=== PATIENT | female | born 1975 | race Caucasian/White ===

== ENCOUNTER 2016-10-19 11:08 | Emergency (ER) | payer MEDICAID ==
[2016-10-19] MEDS ORDERED: IBUPROFEN 800 MG TABLET PO ONE (11:32)
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
--- NOTE | 2016-10-19 12:09 | RADIOLOGY REPORT (SQ) ---
EXAM DESCRIPTION: FOOT RIGHT COMPLETE COMPLETED DATE/TIME: 10/19/2016 11:58 am REASON FOR STUDY: fall, r 5th MT pain COMPARISON: None. NUMBER OF VIEWS: Three views. TECHNIQUE: AP, lateral and oblique radiographic images acquired of the right foot. LIMITATIONS: None. FINDINGS: MINERALIZATION: Normal. BONES: No acute fracture or dislocation. Plantar and dorsal calcaneal spurs are present. JOINTS: No effusions. SOFT TISSUES: No soft tissue swelling. No foreign body. OTHER: No other significant finding. IMPRESSION: Calcaneal spurs with no acute abnormality. TECHNICAL DOCUMENTATION: JOB ID: [id number] [employer]- All Rights Reserved
--- NOTE | 2016-10-19 12:10 | RADIOLOGY REPORT (SQ) ---
EXAM DESCRIPTION: ANKLE RIGHT COMPLETE COMPLETED DATE/TIME: 10/19/2016 11:58 am REASON FOR STUDY: fall, r lateral ankle pain COMPARISON: None. NUMBER OF VIEWS: Three views. TECHNIQUE: AP, lateral, and oblique radiographic images acquired of the right ankle. LIMITATIONS: None. FINDINGS: MINERALIZATION: Normal. BONES: No acute fracture or dislocation. Calcaneal spurs are present. JOINTS: No effusions. SOFT TISSUES: No soft tissue swelling. No foreign body. OTHER: No other significant finding. IMPRESSION: NEGATIVE STUDY OF THE RIGHT ANKLE. NO RADIOGRAPHIC EVIDENCE OF ACUTE INJURY. TECHNICAL DOCUMENTATION: JOB ID: [id number] [employer]- All Rights Reserved
[2016-10-19 12:53] VITALS: BP 128/84
== END 2016-10-19 12:41 | disposition home or self-care (01) ==
LOC: ER 11:08
DX: S93.601A Unspecified sprain of right foot, initial encounter (principal); S93.401A Sprain of unspecified ligament of right ankle, initial encounter; W01.0XXA Fall on same level from slipping, tripping and stumbling without subsequent striking against object, initial encounter; Y92.009 Unspecified place in unspecified non-institutional (private) residence as the place of occurrence of the external cause; F17.200 Nicotine dependence, unspecified, uncomplicated; Z85.41 Personal history of malignant neoplasm of cervix uteri
CPT/HCPCS: 99283; 73610; 73630; L4350; J3490

== ENCOUNTER 2017-06-20 10:44 | Emergency (ER) | payer MEDICAID ==
[2017-06-20] MEDS ORDERED: LORAZEPAM INJ 2 MG/1 ML VIAL IV ONE (10:55)
[2017-06-20] MEDS ORDERED: ACETAMINOPHEN 325 MG TABLET PO ONE (10:55)
--- NOTE | 2017-06-20 10:55 | ER Document Report ---
ED General - General Stated Complaint: POSSIBLE SEIZURES Time Seen by Provider: 06/20/17 10:54 Notes: Patient with history of seizure disorders. Followed by Dr. Almendarez locally. Has been on phenobarbital as well as gabapentin in the past. Patient has not been on the phenobarbital for quite some time because she has not needed it. Has been taking gabapentin 1200 mg twice a day. Had a seizure yesterday and had another one today. No other major issues. called 911 because she was quite postictal. Patient is a and O 4 at this time. Denies any major symptoms other than a mild headache. TRAVEL OUTSIDE OF THE [place] IN LAST 30 DAYS: No - HPI Onset: Just prior to arrival Severity: Mild Pain Level: 1 Associated symptoms: None - Related Data Allergies/Adverse Reactions: iodine [Iodine] Allergy (Mild, Verified 03/28/15 19:33) amoxicillin [Amoxicillin] Allergy (Verified 03/28/15 19:33) Penicillins Allergy (Verified 03/28/15 19:33) Past Medical History - General Information source: Patient - Social History Smoking Status: Former Smoker Frequency of alcohol use: None Drug Abuse: None Lives with: Spouse/Significant other Family History: Reviewed & Not Pertinent, Hypertension Neurological Medical History: Reports: Hx Seizures Renal/ Medical History: Denies: Hx Peritoneal Dialysis Malignancy Medical History: Reports: Hx Cervical Cancer Musculoskeltal Medical History: Reports Hx Musculoskeletal Deformity, Reports Hx Musculoskeletal Trauma Psychiatric Medical History: Reports: Hx Anxiety, Hx Depression Past Surgical History: Reports: Hx Section, Hx Dilation and Curettage, Hx Gynecologic Surgery, Hx Tubal Ligation - Immunizations Immunizations up to date: Yes Hx Diphtheria, Pertussis, Tetanus Vaccination: Yes Review of Systems - Review of Systems Constitutional: No symptoms reported EENT: No symptoms reported Cardiovascular: No symptoms reported Respiratory: No symptoms reported Gastrointestinal: No symptoms reported Genitourinary: No symptoms reported Female Genitourinary: No symptoms reported Musculoskeletal: No symptoms reported Skin: No symptoms reported Hematologic/Lymphatic: No symptoms reported Neurological/Psychological: Seizure, Headaches Physical Exam - Vital signs Vitals: Temp Resp Pulse Ox 98.2 F 15 99 06/20/17 10:50 06/20/17 10:50 06/20/17 10:50 Interpretation: Normal - General General appearance: Appears well, Alert - HEENT Head: Normocephalic, Atraumatic Eyes: Normal Pupils: PERRL - Respiratory Respiratory status: No respiratory distress Chest status: Nontender Breath sounds: Normal Chest palpation: Normal - Cardiovascular Rhythm: Regular Heart sounds: Normal auscultation Murmur: No - Abdominal Inspection: Normal Distension: No distension Bowel sounds: Normal Tenderness: Nontender Organomegaly: No organomegaly - Back Back: Normal, Nontender - Extremities General upper extremity: Normal inspection, Nontender, Normal color, Normal ROM , Normal temperature General lower extremity: Normal inspection, Nontender, Normal color, Normal ROM , Normal temperature, Normal weight bearing. No: Krystle's sign - Neurological Neuro grossly intact: Yes Cognition: Normal Orientation: AAOx4 [place] Coma Scale Eye Opening: Spontaneous [place] Coma Scale Verbal: Oriented Mac Coma Scale Motor: Obeys Commands Mac Coma Scale Total: 15 Speech: Normal Motor strength normal: LUE, RUE, LLE, RLE Sensory: Normal - Psychological Associated symptoms: Normal affect, Normal mood - Skin Skin Temperature: Warm Skin Moisture: Dry Skin Color: Normal Course - Re-evaluation Re-evalutation: 06/20/17 12:12 Patient does report that she stopped taking her Zoloft about 5 days ago. This could definitely be causes exacerbation of her symptoms. We will give her a dose of it right now. - Vital Signs Vital signs: Temp Pulse Resp BP Pulse Ox 98.2 F 16 140/91 H 100 06/20/17 10:50 06/20/17 11:01 06/20/17 11:00 06/20/17 11:01 - Laboratory Result Diagrams: 06/20/17 10:55 06/20/17 10:55 Laboratory results interpreted by me: 06/20/17 06/20/17 10:55 10:55 Eosinophils % 6.1 H Carbon Dioxide 31 H Total Bilirubin 0.1 L Discharge - Discharge Clinical Impression: Seizure, Selective serotonin reuptake inhibitor (SSRI) discontinuation syndrome Condition: Good Disposition: HOME, SELF-CARE Instructions: Seizure, Known Epileptic ([facility]) Additional Instructions: Please begin your medications as prescribed. Follow-up with your regular doctor. Please get plenty of rest today. Stay out of the heat. Cannot do anything strenuous. You will need repeat labs done in a few weeks. It will be very important that you make an appointment to follow-up with your doctor as liver function testing as well as phenobarbital level should be performed in approximately 2-4 weeks. Prescriptions: Gabapentin 600 mg PO BID 15 Days #60 capsule Phenobarbital [Phenobarbital 32.4 Mg Tablet] 32.4 mg PO TID 20 Days #60 tablet Referrals: EDIS GAMBINO MD [Primary Care Provider] - Follow up in 3-5 days
[2017-06-20 11:19] LABS: ABSOLUTE EOSINOPHILS # (AUTO) 0.5 10^3/uL (0.0-0.6); ABSOLUTE LYMPHOCYTES (AUTO) 2.4 10^3/uL (0.5-4.7); ABSOLUTE MONOCYTES (AUTO) 0.5 10^3/uL (0.1-1.4); ABSOLUTE NEUT (AUTO) 4.8 10^3/uL (1.7-8.2); BASOPHILS % (AUTO) 0.6 % (0-2); EOSINOPHILS % (AUTO) 6.1 % (0-6); HEMATOCRIT 38.4 % (36.0-47.0); HEMOGLOBIN 13.1 g/dL (12.0-15.5); LYMPHOCYTES % (AUTO) 29.3 % (13-45); MEAN CORPUSCULAR HEMOGLOBIN 30.4 pg (27.0-33.4); MEAN CORPUSCULAR HGB CONC 34.1 g/dL (32.0-36.0); MEAN CORPUSCULAR VOLUME 89 fl (80-97); MONOCYTES % (AUTO) 6.5 % (3-13); PLATELET COUNT 266 10^3/uL (150-450); RED CELL DISTRIBUTION WIDTH 13.7 % (11.5-14.0); SEGMENTED NEUTROPHILS % (AUTO) 57.5 % (42-78); TOTAL CELLS COUNTED % (AUTO) 100 %; WHITE BLOOD COUNT 8.3 10^3/uL (4.0-10.5)
[2017-06-20] MEDS ORDERED: PHENOBARBITAL 20 MG/5 ML UDCUP PO ONE (11:19)
[2017-06-20 11:55] LABS: ALANINE AMINOTRANSFERASE 30 U/L (9-52); ALKALINE PHOSPHATASE 75 U/L (38-126); ANION GAP 12 (5-19); ASPARTATE AMINO TRANSFERASE 25 U/L (14-36); BILIRUBIN,DIRECT 0.1 mg/dL (0.0-0.4); BILIRUBIN,TOTAL 0.1 mg/dL (0.2-1.3); BLOOD UREA NITROGEN 11 mg/dL (7-20); CALCIUM 9.5 mg/dL (8.4-10.2); CARBON DIOXIDE 31 mmol/L (22-30); CHLORIDE 101 mmol/L (98-107); GLUCOSE 102 mg/dL (75-110); POTASSIUM 4.6 mmol/L (3.6-5.0); TOTAL PROTEIN 6.8 g/dL (6.3-8.2)
[2017-06-20] MEDS ORDERED: SERTRALINE HCL 50 MG TABLET PO ONE (12:11)
[2017-06-20 13:12] LABS: APPEARANCE,URINE CLEAR; BILIRUBIN,URINE NEGATIVE (NEGATIVE); COLOR,URINE YELLOW; GLUCOSE, URINE NEGATIVE (NEGATIVE); KETONES,URINE NEGATIVE (NEGATIVE); LEUKOCYTE ESTERASE,URINE NEGATIVE (NEGATIVE); NITRITE,URINE NEGATIVE (NEGATIVE); PROTEIN,URINE NEGATIVE (NEGATIVE); URINE SPECIFIC GRAVITY 1.015; UROBILINOGEN,URINE NEGATIVE mg/dL (<2.0)
[2017-06-20 13:38] LABS: URINE AMPHETAMINES SCREEN UNCONFIRMED POSITIVE; URINE BARBITURATES SCREEN NEGATIVE; URINE BENZODIAZEPINES SCREEN NEGATIVE; URINE COCAINE SCREEN NEGATIVE; URINE MARIJUANA (THC) SCREEN NEGATIVE; URINE METHADONE SCREEN NEGATIVE; URINE PHENCYCLIDINE SCREEN NEGATIVE
[2017-06-20 14:13] VITALS: BP 105/67
== END 2017-06-20 14:11 | disposition home or self-care (01) ==
LOC: ER 10:44
DX: G40.909 Epilepsy, unspecified, not intractable, without status epilepticus (principal); T42.6X5A Adverse effect of other antiepileptic and sedative-hypnotic drugs, initial encounter; X58.XXXA Exposure to other specified factors, initial encounter; Z88.0 Allergy status to penicillin; Z87.891 Personal history of nicotine dependence; Z98.51 Tubal ligation status
CPT/HCPCS: 99284; 96374; 36415; 85025; 81025; 80053; 81001; 80307; J3490 ×3; J2060

== ENCOUNTER → 2017-07-11 | Outpatient (CLI) | payer MEDICAID ==
[2017-07-11 14:13] LABS: ABSOLUTE BASOPHILS # (AUTO) 0.1 10^3/uL (0.0-0.2); ABSOLUTE EOSINOPHILS # (AUTO) 0.5 10^3/uL (0.0-0.6); ABSOLUTE LYMPHOCYTES (AUTO) 2.2 10^3/uL (0.5-4.7); ABSOLUTE MONOCYTES (AUTO) 0.5 10^3/uL (0.1-1.4); ABSOLUTE NEUT (AUTO) 6.6 10^3/uL (1.7-8.2); BASOPHILS % (AUTO) 0.6 % (0-2); EOSINOPHILS % (AUTO) 5.2 % (0-6); HEMATOCRIT 38.1 % (36.0-47.0); HEMOGLOBIN 12.9 g/dL (12.0-15.5); LYMPHOCYTES % (AUTO) 22.5 % (13-45); MEAN CORPUSCULAR HEMOGLOBIN 29.9 pg (27.0-33.4); MEAN CORPUSCULAR HGB CONC 33.8 g/dL (32.0-36.0); MEAN CORPUSCULAR VOLUME 88 fl (80-97); MONOCYTES % (AUTO) 4.7 % (3-13); PLATELET COUNT 293 10^3/uL (150-450); RED BLOOD COUNT 4.31 10^6/uL (3.72-5.28); RED CELL DISTRIBUTION WIDTH 13.3 % (11.5-14.0); TOTAL CELLS COUNTED % (AUTO) 100 %; WHITE BLOOD COUNT 9.8 10^3/uL (4.0-10.5)
[2017-07-11 14:36] LABS: ALANINE AMINOTRANSFERASE 21 U/L (9-52); ALBUMIN 4.4 g/dL (3.5-5.0); ALKALINE PHOSPHATASE 95 U/L (38-126); ANION GAP 15 (5-19); ASPARTATE AMINO TRANSFERASE 25 U/L (14-36); BILIRUBIN,DIRECT 0.3 mg/dL (0.0-0.4); BILIRUBIN,TOTAL 0.3 mg/dL (0.2-1.3); BLOOD UREA NITROGEN 10 mg/dL (7-20); CALCIUM 9.6 mg/dL (8.4-10.2); CARBON DIOXIDE 24 mmol/L (22-30); CHLORIDE 102 mmol/L (98-107); CHOLESTEROL 220.52 mg/dL (0-200); GLUCOSE 89 mg/dL (75-110); POTASSIUM 4.6 mmol/L (3.6-5.0); SODIUM 141.2 mmol/L (137-145); TOTAL PROTEIN 7.6 g/dL (6.3-8.2); TRIGLYCERIDES 50 mg/dL (<150)
[2017-07-11 14:47] LABS: DIRECT LDL 119 mg/dL (<100)
== END ==
LOC: OD 13:21
PROVIDERS: ATTEND Internal Medicine Geriatric Medicine
DX: E66.01 Morbid (severe) obesity due to excess calories (principal); Z68.42 Body mass index [BMI] 45.0-49.9, adult; E78.5 Hyperlipidemia, unspecified
CPT/HCPCS: 36415; 80053; 80061; 84443; 85025

== ENCOUNTER 2017-09-03 21:05 | Emergency (ER) | payer OTHER, MEDICAID ==
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
--- NOTE | 2017-09-03 23:33 | RADIOLOGY REPORT (SQ) ---
Right ankle three view on 09/03/2017 at 11:32 PM CLINICAL INDICATION: Right ankle pain COMPARISON: 10/19/2016 FINDINGS: Plantar calcaneal spur is again noted. The ankle mortise is intact. Mild soft tissue swelling is noted around the ankle. There are no fractures. Visualized joints are well aligned. IMPRESSION: No acute bony abnormality.
--- NOTE | 2017-09-03 23:35 | RADIOLOGY REPORT (SQ) ---
Left tibia-fibula two view on 09/03/2017 at 11:34 PM CLINICAL INDICATION: Leg pain COMPARISON: None FINDINGS: No joint effusion is noted in the knee. Small plantar calcaneal spur is noted. Mild changes of osteoarthritis are noted in the medial compartment of the knee. There are no fractures. Visualized joints are well aligned. IMPRESSION: No acute abnormality.
--- NOTE | 2017-09-03 23:36 | RADIOLOGY REPORT (SQ) ---
Right tibia-fibula two view on 09/03/2017 at 11:30 PM CLINICAL INDICATION: Leg pain COMPARISON: None FINDINGS: There are no fractures. Visualized joints are well aligned. No bony abnormality is noted. IMPRESSION: No acute bony abnormality.
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
--- NOTE | 2017-09-03 23:38 | RADIOLOGY REPORT (SQ) ---
Pelvis and right hip two view on 09/03/2017 CLINICAL INDICATION: Pain COMPARISON: None FINDINGS: The hips are well located. The SI joints are well aligned. Cortical irregularity along the inferior lateral aspect of the right greater trochanter is favored to be chronic in nature but cannot exclude fracture at this location. If there is high clinical concern consider CT follow-up. No other evidence of fracture is noted. IMPRESSION: Possible age-indeterminate fracture involving the right inferior lateral greater trochanter. If there is clinical concern for fracture at this location consider CT follow-up.
== END 2017-09-04 00:10 | disposition left against medical advice (07) ==
LOC: ER 21:05
DX: M54.2 Cervicalgia (principal); M25.551 Pain in right hip; M25.571 Pain in right ankle and joints of right foot; M79.605 Pain in left leg; G40.909 Epilepsy, unspecified, not intractable, without status epilepticus; Z88.0 Allergy status to penicillin; Z90.710 Acquired absence of both cervix and uterus; Z85.41 Personal history of malignant neoplasm of cervix uteri
CPT/HCPCS: 99284; 73610; 73552; 73502; 73590 ×2; 70450; 72125; L0120

== ENCOUNTER 2018-11-24 17:06 | Emergency (ER) | payer MEDICAID, OTHER ==
[2018-11-24 17:26] LABS: ABSOLUTE BASOPHILS # (AUTO) 0.1 10^3/uL (0.0-0.2); ABSOLUTE EOSINOPHILS # (AUTO) 0.5 10^3/uL (0.0-0.6); ABSOLUTE LYMPHOCYTES (AUTO) 1.9 10^3/uL (0.5-4.7); ABSOLUTE MONOCYTES (AUTO) 0.5 10^3/uL (0.1-1.4); ABSOLUTE NEUT (AUTO) 4.8 10^3/uL (1.7-8.2); BASOPHILS % (AUTO) 0.7 % (0-2); EOSINOPHILS % (AUTO) 6.2 % (0-6); HEMATOCRIT 37.7 % (36.0-47.0); HEMOGLOBIN 12.3 g/dL (12.0-15.5); LYMPHOCYTES % (AUTO) 25.1 % (13-45); MEAN CORPUSCULAR HEMOGLOBIN 29.4 pg (27.0-33.4); MEAN CORPUSCULAR HGB CONC 32.7 g/dL (32.0-36.0); MEAN CORPUSCULAR VOLUME 90 fl (80-97); MONOCYTES % (AUTO) 6.2 % (3-13); PLATELET COUNT 253 10^3/uL (150-450); RED BLOOD COUNT 4.19 10^6/uL (3.72-5.28); RED CELL DISTRIBUTION WIDTH 15.3 % (11.5-14.0); SEGMENTED NEUTROPHILS % (AUTO) 61.8 % (42-78); TOTAL CELLS COUNTED % (AUTO) 100 %; WHITE BLOOD COUNT 7.7 10^3/uL (4.0-10.5)
--- NOTE | 2018-11-24 17:43 | RADIOLOGY REPORT (SQ) ---
EXAM DESCRIPTION: CHEST SINGLE VIEW COMPLETED DATE/TIME: 11/24/2018 5:27 pm REASON FOR STUDY: bed 21 cp COMPARISON: None. EXAM PARAMETERS: NUMBER OF VIEWS: One view. TECHNIQUE: Single frontal radiographic view of the chest acquired. RADIATION DOSE: NA LIMITATIONS: None. FINDINGS: LUNGS AND PLEURA: No opacities, masses or pneumothorax. No pleural effusion. MEDIASTINUM AND HILAR STRUCTURES: No masses. Contour normal. HEART AND VASCULAR STRUCTURES: The heart size is at the upper limits of normal. Normal vasculature. BONES: No acute findings. HARDWARE: None in the chest. OTHER: No other significant finding. IMPRESSION: 1. NO ACUTE RADIOGRAPHIC FINDING IN THE CHEST. TECHNICAL DOCUMENTATION: JOB ID: [id number] [employer]- All Rights Reserved Reading location - IP/workstation name: [email or web address]
[2018-11-24 17:48] LABS: ALBUMIN 3.7 g/dL (3.5-5.0); ALKALINE PHOSPHATASE 81 U/L (38-126); ANION GAP 7 (5-19); ASPARTATE AMINO TRANSFERASE 29 U/L (14-36); BILIRUBIN,DIRECT 0.1 mg/dL (0.0-0.4); BILIRUBIN,TOTAL 0.2 mg/dL (0.2-1.3); BLOOD UREA NITROGEN 8 mg/dL (7-20); CALCIUM 8.7 mg/dL (8.4-10.2); CARBON DIOXIDE 30 mmol/L (22-30); CHLORIDE 103 mmol/L (98-107); CREATINE KINASE 117 U/L (30-135); GLUCOSE 85 mg/dL (75-110); POTASSIUM 4.1 mmol/L (3.6-5.0); TOTAL PROTEIN 6.9 g/dL (6.3-8.2)
[2018-11-24 18:01] LABS: TROPONIN I < 0.012 ng/mL
--- NOTE | 2018-11-24 18:22 | ER Document Report ---
ED General - General Chief Complaint: Chest Pain Stated Complaint: CHEST PAIN Time Seen by Provider: 11/24/18 17:44 Primary Care Provider: EDIS GAMBINO MD [Primary Care Provider] - Follow up as needed TRAVEL OUTSIDE OF THE [place] IN LAST 30 DAYS: Yes - HPI Notes: Patient is a 43-year-old female who presents to the emergency department for evaluation. Evidently she was on the phone, walking around. She remarked to her daughter that she needed to sit, but she felt very dizzy. She sat down, laid her head back, and went unresponsive for approximately 5 minutes. When she awoke she was totally normal. Daughter was present the entire time. She states that she witnessed no seizure activity. 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 She is been taking her medications as prescribed. She notes that her seizures have increased since being changed from Subutex to Suboxone. Patient states that when she woke she had a left-sided chest pain. She really cannot describe it to say other than it hurts. She grabs the pectoral muscle and soft tissue in the left axillary region. She states that the pain goes from under her left breast into her left arm. She states it was there when she woke up, lessened by the time the ambulance came, and is now entirely gone. She denies any associated nausea, diaphoresis. - Related Data Allergies/Adverse Reactions: iodine [Iodine] Allergy (Mild, Verified 03/28/15 19:33) amoxicillin [Amoxicillin] Allergy (Verified 03/28/15 19:33) Penicillins Allergy (Verified 03/28/15 19:33) Home Medications: Vyvanse 60 mg daily, Neurontin 600 mg 4 times daily, trazodone 100 mg at bedtime, Zoloft 100 mg daily, Suboxone 2 mg twice daily, Fycompa 4 mg daily Past Medical History - Social History Smoking Status: Current Every Day Smoker Family History: Reviewed & Not Pertinent, Hypertension Patient has suicidal ideation: No Patient has homicidal ideation: No Neurological Medical History: Reports: Hx Seizures Renal/ Medical History: Denies: Hx Peritoneal Dialysis Malignancy Medical History: Reports: Hx Cervical Cancer Musculoskeletal Medical History: Reports Hx Musculoskeletal Deformity, Reports Hx Musculoskeletal Trauma Psychiatric Medical History: Reports: Hx Anxiety, Hx Depression Past Surgical History: Reports: Hx Section, Hx Dilation and Curettage, Hx Gynecologic Surgery, Hx Hysterectomy, Hx Tubal Ligation - Immunizations Immunizations up to date: Yes Hx Diphtheria, Pertussis, Tetanus Vaccination: Yes Review of Systems - Review of Systems Constitutional: No symptoms reported EENT: No symptoms reported Cardiovascular: See HPI Respiratory: No symptoms reported Gastrointestinal: No symptoms reported Genitourinary: No symptoms reported Female Genitourinary: No symptoms reported Musculoskeletal: No symptoms reported Skin: No symptoms reported Neurological/Psychological: See HPI Physical Exam - Vital signs Vitals: Resp Pulse Ox 23 H 97 11/24/18 17:20 11/24/18 17:20 - Notes Notes: This is an obese 43-year-old female, appears her stated age in no acute distress. Vital signs reviewed, please refer to chart. Head is normocephalic, atraumatic. Pupils equal round, reactive to light. Neck is supple without meningismus. Heart is regular rate and rhythm. Lungs are clear to auscultation bilaterally. No breast mass on the left that I can appreciate. No overlying skin changes. No significant tenderness to palpation to light touch in that area, but she does have tenderness to palpation deep in the pectoralis muscle. Abdomen is soft, nontender, normoactive bowel sounds throughout. Extremities without cyanosis, clubbing. Posterior calves are nontender. Peripheral pulses are equal. Skin is warm and dry. She does have one erythematous pustule noted at the base of the neck, overlying the trapezius on the left. No surrounding induration. Patient is awake, alert, neurological exam is nonfocal. Course - Re-evaluation Re-evalutation: 11/24/18 18:43 Patient presents to the emergency department for evaluation after an unresponsive episode, and for chest pain. She has not had any chest pain since arrival. My suspicion is that this unresponsive episode may have in fact been a seizure. She states her seizures are "stress-induced." This would be an at ypical seizure for her, but she admits she has been under a great amount of stress. She has not stopped or changed any of her antiepileptic medications. The patient has been stable, and again has no chest pain now. Her initial troponin was totally negative. I did discuss staying for a second troponin. The patient is opted not to. I talked to her at length about the fact that I could not rule out acute coronary syndrome or ongoing anginal pain in this setting. She voiced understanding. We talked about the possible sequelae of this, including change in lifestyle and . She voiced understanding and still decided to sign out AGAINST MEDICAL ADVICE. She is to follow-up closely with her primary care provider as well as her neurologist. She is advised that she needs to lose weight, quit smoking. She is to return to the ED with worsening or new concerning symptoms, or if at any point she changes her mind regarding serial troponin testing. - Vital Signs Vital signs: Temp Pulse Resp BP Pulse Ox 16 135/70 H 95 11/24/18 17:23 11/24/18 17:23 11/24/18 17:34 - Laboratory Result Diagrams: 11/24/18 16:41 11/24/18 16:41 Laboratory results interpreted by me: 11/24/18 16:41 RDW 15.3 H Eos % (Auto) 6.2 H - Diagnostic Test Radiology reviewed: Reports reviewed Radiology results interpreted by me: 11/24/18 18:22 Chest X-Ray 11/24/18 17:11 IMPRESSION: 1. NO ACUTE RADIOGRAPHIC FINDING IN THE CHEST. - EKG Interpretation by Me Additional EKG results interpreted by me: 11/24/18 18:22 Sinus mechanism with rate of 61 bpm. Normal axis and intervals, no acute ST changes concerning for ischemia or infarction. Discharge - Discharge Clinical Impression: Unresponsive episode Chest pain Qualifiers: Chest pain type: unspecified Qualified Code(s): R07.9 - Chest pain, unspecified Condition: Stable Disposition: AGAINST MEDICAL ADVICE Instructions: Chest Pain of Unclear Cause ([facility]) Additional Instructions: No clear cause was found for your unresponsive episode or your chest pain today. You have elected to leave AGAINST MEDICAL ADVICE. Should you change your mind, if your symptoms return, or if you develop any new or concerning symptoms, please return immediately to the emergency department for evaluation. Otherwise follow-up with your neurologist and primary care provider this week. Referrals: EDIS GAMBINO MD [Primary Care Provider] - Follow up as needed
[2018-11-24 18:53] VITALS: BP 111/72
--- NOTE | 2018-11-25 17:57 | EKG REPORT ---
SEVERITY:- NORMAL ECG - SINUS RHYTHM : Confirmed by: Michael Mora 25-Nov-2018 17:57:10
== END 2018-11-24 19:04 | disposition left against medical advice (07) ==
LOC: ER 17:06
DX: R07.9 Chest pain, unspecified (principal); R42 Dizziness and giddiness; R40.4 Transient alteration of awareness; F17.210 Nicotine dependence, cigarettes, uncomplicated; Z88.0 Allergy status to penicillin; Z90.710 Acquired absence of both cervix and uterus
CPT/HCPCS: 36415; 71045; 80053; 82550; 82553; 84484; 85025; 93005; 93010; 99285

== ENCOUNTER 2019-01-22 17:58 | Emergency (ER) | payer SELFPAY ==
--- NOTE | 2019-01-22 19:17 | RADIOLOGY REPORT (SQ) ---
EXAM DESCRIPTION: SHOULDER RIGHT 2 OR MORE VIEWS COMPLETED DATE/TIME: 01/22/2019 7:08 pm REASON FOR STUDY: bone tenderness COMPARISON: None. NUMBER OF VIEWS: Three views. TECHNIQUE: Internal rotation, external rotation, and Y view images acquired of the left shoulder. LIMITATIONS: None. FINDINGS: MINERALIZATION: Normal. BONES: No acute fracture. No worrisome bone lesions. JOINTS: No dislocation. VISUALIZED LUNGS AND RIBS: No pneumothorax. No rib fracture. SOFT TISSUES: No radiopaque foreign body. OTHER: No other significant finding. IMPRESSION: NO RADIOGRAPHIC EVIDENCE OF ACUTE INJURY. TECHNICAL DOCUMENTATION: JOB ID: [id number] [employer]- All Rights Reserved Reading location - IP/workstation name: [email or web address]
[2019-01-22] MEDS ORDERED: ASPIRIN 81 MG TABLET, CHEWABLE PO ONE (19:22)
--- NOTE | 2019-01-22 19:24 | ER Document Report ---
ED Medical Screen (RME) - General Chief Complaint: Fall Stated Complaint: CHEST PAIN TRAVEL OUTSIDE OF THE [place] IN LAST 30 DAYS: Yes - HPI Notes: 01/22/19 19:22 43-year-old female presents emergency room after falling on her left shoulder approximately 2 days ago. Patient has a seizure petit and grand mal seizures, states that she has been out of her trazodone and this is why her seizures have increased. Reports left-sided chest pain that does radiate to her shoulder, she is unsure if this is related to the fall or if it is actual chest pain because she does not remember the event. Pain is 4 out of 10, throbbing achy. I have greeted and performed a rapid initial assessment of this patient. A comprehensive ED assessment and evaluation of the patient, analysis of test results and completion of the medical decision making process will be conducted by additional ED providers. PHYSICAL EXAMINATION: GENERAL: Well-appearing, well-nourished and in no acute distress. HEAD: Atraumatic, normocephalic. EYES: Pupils equal round extraocular movements intact, conjunctiva are normal. ENT: Nares patent NECK: Normal range of motion LUNGS: No respiratory distress Musculoskeletal: Normal range of motion with reproducible left-sided chest pain on palpation. Limited range of motion with left shoulder with abduction. [place] +2 in bilateral upper extremities equally NEUROLOGICAL: Normal speech, normal gait. PSYCH: Normal mood, normal affect. SKIN: Warm, Dry, normal turgor, no rashes or lesions noted. - Related Data Allergies/Adverse Reactions: iodine [Iodine] Allergy (Mild, Verified 03/28/15 19:33) amoxicillin [Amoxicillin] Allergy (Verified 03/28/15 19:33) Penicillins Allergy (Verified 03/28/15 19:33) Home Medications: TRazodone Past Medical History - Social History Family history: Reviewed & Not Pertinent Neurological Medical History: Reports: Hx Seizures Renal/ Medical History: Denies: Hx Peritoneal Dialysis Malignancy Medical History: Reports: Hx Cervical Cancer Musculoskeltal Medical History: Reports Hx Musculoskeletal Deformity, Reports Hx Musculoskeletal Trauma Psychiatric Medical History: Reports: Hx Anxiety, Hx Depression Past Surgical History: Reports: Hx Section, Hx Dilation and Curettage, Hx Gynecologic Surgery, Hx Hysterectomy, Hx Tubal Ligation - Immunizations Immunizations up to date: Yes Hx Diphtheria, Pertussis, Tetanus Vaccination: Yes Physical Exam - Vital signs Vitals: Temp Pulse Resp BP Pulse Ox 98.0 F 78 12 107/80 100 01/22/19 17:59 01/22/19 17:59 01/22/19 17:59 01/22/19 17:59 01/22/19 17:59 Course - Vital Signs Vital signs: Temp Pulse Resp BP Pulse Ox 98.0 F 78 22 H 107/80 100 01/22/19 17:59 01/22/19 17:59 01/22/19 18:18 01/22/19 17:59 01/22/19 17:59
--- NOTE | 2019-01-22 20:51 | EKG REPORT ---
SEVERITY:- NORMAL ECG - SINUS RHYTHM : Confirmed by: Tunde Hernandez MD 22-Jan-2019 20:51:19
[2019-01-22 20:56] LABS: APPEARANCE,URINE SLIGHTLY-CLOUDY; BILIRUBIN,URINE NEGATIVE (NEGATIVE); COLOR,URINE YELLOW; GLUCOSE, URINE NEGATIVE (NEGATIVE); KETONES,URINE NEGATIVE (NEGATIVE); LEUKOCYTE ESTERASE,URINE NEGATIVE (NEGATIVE); NITRITE,URINE NEGATIVE (NEGATIVE); PROTEIN,URINE NEGATIVE (NEGATIVE); URINE SPECIFIC GRAVITY 1.013; UROBILINOGEN,URINE NEGATIVE mg/dL (<2.0)
[2019-01-22 21:01] LABS: ABSOLUTE BASOPHILS # (AUTO) 0.1 10^3/uL (0.0-0.2); ABSOLUTE EOSINOPHILS # (AUTO) 0.4 10^3/uL (0.0-0.6); ABSOLUTE LYMPHOCYTES (AUTO) 2.2 10^3/uL (0.5-4.7); ABSOLUTE MONOCYTES (AUTO) 0.7 10^3/uL (0.1-1.4); ABSOLUTE NEUT (AUTO) 8.4 10^3/uL (1.7-8.2); BASOPHILS % (AUTO) 0.7 % (0-2); EOSINOPHILS % (AUTO) 3.7 % (0-6); HEMATOCRIT 40.6 % (36.0-47.0); HEMOGLOBIN 13.4 g/dL (12.0-15.5); MEAN CORPUSCULAR HEMOGLOBIN 29.4 pg (27.0-33.4); MEAN CORPUSCULAR VOLUME 89 fl (80-97); MONOCYTES % (AUTO) 5.9 % (3-13); PLATELET COUNT 280 10^3/uL (150-450); RED BLOOD COUNT 4.55 10^6/uL (3.72-5.28); RED CELL DISTRIBUTION WIDTH 14.4 % (11.5-14.0); SEGMENTED NEUTROPHILS % (AUTO) 70.7 % (42-78); TOTAL CELLS COUNTED % (AUTO) 100 %; WHITE BLOOD COUNT 11.8 10^3/uL (4.0-10.5)
--- NOTE | 2019-01-22 21:02 | ER Document Report ---
ED General - General Chief Complaint: Fall Stated Complaint: CHEST PAIN Time Seen by Provider: 01/22/19 20:40 Notes: 43-year-old female with a history of seizures presents for left shoulder pain that radiates into her left chest that is been ongoing for 2 days. Patient states it is worse with movement. Denies any associated symptoms. Patient states she had a seizure causing her to fall onto her left shoulder. Patient states she has had frequent seizures in the last week and thinks this may be due to decreased sleep due to not having her trazodone. Patient has contacted her primary care doctor to have her trazodone called into her pharmacy. Patient also has a history of anxiety, smoking cigarettes, previous drug abuse currently on Suboxone. Patient denies any history of hypertension or diabetes. Patient also denies any family history of any cardiac problems. Patient denies any head injury. TRAVEL OUTSIDE OF THE [place] IN LAST 30 DAYS: Yes - Related Data Allergies/Adverse Reactions: iodine [Iodine] Allergy (Mild, Verified 03/28/15 19:33) amoxicillin [Amoxicillin] Allergy (Verified 03/28/15 19:33) Penicillins Allergy (Verified 03/28/15 19:33) Home Medications: TRazodone Past Medical History - Social History Smoking Status: Unknown if Ever Smoked Family History: Reviewed & Not Pertinent, Hypertension Patient has suicidal ideation: No Patient has homicidal ideation: No Neurological Medical History: Reports: Hx Seizures Renal/ Medical History: Denies: Hx Peritoneal Dialysis Malignancy Medical History: Reports: Hx Cervical Cancer Musculoskeletal Medical History: Reports Hx Musculoskeletal Deformity, Reports Hx Musculoskeletal Trauma Psychiatric Medical History: Reports: Hx Anxiety, Hx Depression Past Surgical History: Reports: Hx Section, Hx Dilation and Curettage, Hx Gynecologic Surgery, Hx Hysterectomy, Hx Tubal Ligation - Immunizations Immunizations up to date: Yes Hx Diphtheria, Pertussis, Tetanus Vaccination: Yes Review of Systems - Review of Systems Notes: Constitutional: Negative for fever. HENT: Negative for sore throat. Eyes: Negative for visual changes. Cardiovascular: Positive for chest pain. Respiratory: Negative for shortness of breath. Gastrointestinal: Negative for abdominal pain, vomiting or diarrhea. Genitourinary: Negative for dysuria. Musculoskeletal: Positive for left shoulder pain. Negative for back pain. Skin: Negative for rash. Neurological: Negative for headaches, weakness or numbness. 10 point ROS negative except as marked above and in HPI. Physical Exam - Vital signs Vitals: Temp Pulse Resp BP Pulse Ox 98.0 F 78 12 107/80 100 01/22/19 17:59 01/22/19 17:59 01/22/19 17:59 01/22/19 17:59 01/22/19 17:59 - Notes Notes: GENERAL: Well-appearing, well-nourished, obese and in no acute distress. HEAD: Atraumatic, normocephalic. EYES: Pupils equal round and reactive to light, extraocular movements intact, sclera anicteric, conjunctiva are normal. NECK: Normal range of motion, supple without lymphadenopathy or JVD. LUNGS: Breath sounds clear to auscultation bilaterally and equal. No wheezes rales or rhonchi. HEART: Regular rate and rhythm without murmurs, rubs or gallops. ABDOMEN: Soft, nontender. No guarding, no rebound. No masses appreciated. EXTREMITIES: Normal range of motion, no pitting or edema. No clubbing or cyanosis. Left shoulder is mildly tender, FROM with pain, radial pulse 2+, left elbow ROM intact NEUROLOGICAL: Cranial nerves II through XII grossly intact. Normal speech, normal gait. PSYCH: Normal mood, normal affect. SKIN: Warm, Dry, normal turgor, no rashes or lesions noted. Course - Re-evaluation Re-evalutation: 01/22/19 43-year-old female with past medical history of seizures currently on seizure medications presents with left shoulder pain that radiates into her left chest that is ongoing for 2 days after a seizure. Patient states she fell onto her left shoulder. Patient states she has been having increased seizures this week due to lack of sleep due to not having her trazodone. Patient has contacted her PCP for refill of this. Patient does have pain of left shoulder with movement. EKG shows no ST elevation and is unchanged from her previous. Cardiac work-up was initiated. Left shoulder x-ray was negative for fracture. Chest x-ray was also ordered. 01/22/19 22:12 Low clinical suspicion for ACS given clinical history, exam, EKG without ST elevations or depressions, and negative initial troponin. HEART score less than or equal to 3. PE also seems unlikely given clinical history, absence of tachycardia or dyspnea. Patient is PERC criteria negative. CXR without evidence of pneumothorax or pneumonia. No widened mediastinum. Aortic dissection also seems unlikely given history, symmetric pulses, CXR, and vitals. HEART Score: 1 Discussed all results with pt. Pt requesting one dose of her trazodone prior to discharge. All questions/concerns addressed prior to discharge. - Vital Signs Vital signs: Temp Pulse Resp BP Pulse Ox 98.0 F 78 14 122/76 97 01/22/19 17:59 01/22/19 17:59 01/22/19 22:01 01/22/19 22:00 01/22/19 22:01 - Laboratory Result Diagrams: 01/22/19 18:13 01/22/19 21:32 Laboratory results interpreted by me: 01/22/19 01/22/19 18:13 21:32 WBC 11.8 H RDW 14.4 H Absolute Neuts (auto) 8.4 H Carbon Dioxide 32 H Discharge - Discharge Clinical Impression: Seizure Left shoulder pain Qualifiers: Chronicity: acute Qualified Code(s): M25.512 - Pain in left shoulder Condition: Stable Disposition: HOME, SELF-CARE Instructions: Exercise Program for the Shoulder ([facility]), Shoulder Injury ([facility]) Additional Instructions: Your work-up today was reassuring. Your left shoulder x-ray did not show any fractures. Your chest x-ray was normal. Please follow-up with your primary care doctor in 1 week. Return to ER if you start having any worsening symptoms, including worsening seizures, fevers, worsening pain, chest pain, shortness of breath, or any other symptoms that are concerning for you.
--- NOTE | 2019-01-22 21:53 | RADIOLOGY REPORT (SQ) ---
EXAM DESCRIPTION: XR CHEST 2 VIEWS COMPLETED DATE/TME: 01/22/2019 20:43 CLINICAL HISTORY: 43 years, Female, chest pain Comparison: None FINDINGS: No focal lung consolidation. No pleural effusion. No pneumothorax. Cardiac and mediastinal silhouette is unremarkable. No acute osseous abnormality. Soft tissues are unremarkable. IMPRESSION: No acute findings. No focal lung consolidation.
[2019-01-22 22:06] LABS: ALBUMIN 4.3 g/dL (3.5-5.0); ALKALINE PHOSPHATASE 102 U/L (38-126); ANION GAP 10 (5-19); ASPARTATE AMINO TRANSFERASE 29 U/L (14-36); BILIRUBIN,DIRECT 0.2 mg/dL (0.0-0.4); BILIRUBIN,TOTAL 0.4 mg/dL (0.2-1.3); BLOOD UREA NITROGEN 10 mg/dL (7-20); CALCIUM 9.5 mg/dL (8.4-10.2); CARBON DIOXIDE 32 mmol/L (22-30); CHLORIDE 99 mmol/L (98-107); GLUCOSE 95 mg/dL (75-110); POTASSIUM 4.6 mmol/L (3.6-5.0); TOTAL PROTEIN 7.9 g/dL (6.3-8.2)
[2019-01-22] MEDS ORDERED: TRAZODONE HCL 50 MG TABLET PO ONE (22:09)
[2019-01-22 22:16] VITALS: BP 122/76
== END 2019-01-22 22:31 | disposition home or self-care (01) ==
LOC: ER 17:58
DX: M25.512 Pain in left shoulder (principal); R07.9 Chest pain, unspecified; W19.XXXA Unspecified fall, initial encounter; R56.9 Unspecified convulsions; F19.10 Other psychoactive substance abuse, uncomplicated; Z79.899 Other long term (current) drug therapy; Z88.0 Allergy status to penicillin; Z85.41 Personal history of malignant neoplasm of cervix uteri
CPT/HCPCS: 36415; 71046; 80053; 81001; 83735; 84484; 85025; 93005; 93010; 99285

== ENCOUNTER 2019-08-03 14:11 | Emergency (ER) | payer SELFPAY ==
[2019-08-03] MEDS ORDERED: CYCLOBENZAPRINE HCL 10 MG TABLET PO ONE (14:44)
--- NOTE | 2019-08-03 14:53 | ER Document Report ---
HPI - HPI Patient complains to provider of: left shoulder pain Time Seen by Provider: 08/03/19 14:36 Pain Level: 4 Context: 44-year-old female past medical history significant for depression, ADHD, chronic pain presents to the emergency room complaining of worsening left shoulder pain for the past 4 days. Patient states she had a seizure 1 week ago while sitting in her chair is not uncommon for her start having shoulder pain 2 days later. States was using lidocaine patches without relief. States her noticed bruises on it patient states the pain is gotten worse is now radiating into her arm and fingers. States her fingers feel numb. However she denies any weakness. Taking her regular medications without relief. Patient is right-handed. Associated Symptoms: Other - Paresthesia Exacerbated by: Movement Relieved by: Remaining still Similar symptoms previously: No Recently seen / treated by doctor: No - ROS Systems Reviewed and Negative: Yes All other systems reviewed and negative - NEURO Neurology: DENIES: Weakness - REPRODUCTIVE Reproductive: DENIES: : - MUSCULOSKELETAL Musculoskeletal: REPORTS: Extremity pain - DERM Skin Color: Normal Skin Problems: None Past Medical History - General Information source: Patient - Social History Smoking Status: Current Every Day Smoker Chew tobacco use (# tins/day): No Frequency of alcohol use: None Drug Abuse: None Family History: Reviewed & Not Pertinent, Hypertension Patient has homicidal ideation: No Neurological Medical History: Reports: Hx Seizures Renal/ Medical History: Denies: Hx Peritoneal Dialysis Malignancy Medical History: Reports: Hx Cervical Cancer Musculoskeletal Medical History: Reports Hx Musculoskeletal Deformity, Reports Hx Musculoskeletal Trauma Psychiatric Medical History: Reports: Hx Anxiety, Hx Depression Past Surgical History: Reports: Hx Section, Hx Dilation and Curettage, Hx Gynecologic Surgery, Hx Hysterectomy, Hx Tubal Ligation - Immunizations Immunizations up to date: Yes Hx Diphtheria, Pertussis, Tetanus Vaccination: Yes Vertical Provider Document - CONSTITUTIONAL Agree With Documented VS: Yes Exam Limitations: No Limitations General Appearance: Mild Distress - INFECTION CONTROL TRAVEL OUTSIDE OF THE [place] IN LAST 30 DAYS: Yes - HEENT HEENT: Atraumatic, Normocephalic - NECK Neck: Normal Inspection, Supple - RESPIRATORY Respiratory: Breath Sounds Normal, No Respiratory Distress, Chest Non-Tender - CARDIOVASCULAR Cardiovascular: Regular Rate, Regular Rhythm, No Murmur - BACK Back: Normal Inspection - MUSCULOSKELETAL/EXTREMETIES Musculoskeletal/Extremeties: Tender - Painful range of motion with abduction and adduction to the left shoulder. Tenderness over the posterior left scapula. Tenderness over the left trapezius muscle. There is no obvious deformity noted. - NEURO Level of Consciousness: Awake, Alert Motor/Sensory: No Motor Deficit, No Sensory Deficit Notes: Strength is equal and adequate bilaterally. No acute decreased sensation to painful or light stimuli no neuro deficits noted. Left radial pulse. Course - Re-evaluation Re-evalutation: 08/03/19 15:52 Patient is resting comfortably with decreased pain. Reviewed x-ray results with patient. Counseled continue with current medications Flexeril as prescribed. Recheck with primary care physician if not improving in 2 to 3 days. Patient was given strict return to the emergency room guidelines. Return for any new or worsening symptoms. All questions were answered. Patient verbalized underst anding and agrees with plan of care. - Vital Signs Vital signs: Temp Pulse Resp BP Pulse Ox 98.4 F 78 18 148/90 H 99 08/03/19 14:18 08/03/19 14:18 08/03/19 14:18 08/03/19 14:18 08/03/19 14:18 - Diagnostic Test Radiology reviewed: Reports reviewed Discharge - Discharge Clinical Impression: Paresthesia and pain of left extremity Left shoulder pain Qualifiers: Chronicity: acute Qualified Code(s): M25.512 - Pain in left shoulder Condition: Stable Disposition: HOME, SELF-CARE Instructions: Muscle Strain ([facility]), Numbness or Paresthesia ([facility]), Shoulder Injury ([facility]) Additional Instructions: Medications as prescribed. Recheck with your primary care physician if not proving in 2 to 3 days. Return for any new or worsening symptoms. Prescriptions: Cyclobenzaprine HCl [Flexeril 10 mg Tablet] 10 mg PO TIDP PRN #15 tab PRN Reason:
--- NOTE | 2019-08-03 15:35 | RADIOLOGY REPORT (SQ) ---
EXAM DESCRIPTION: SHOULDER LEFT 2 OR MORE VIEWS IMAGES COMPLETED DATE/TIME: 08/03/2019 3:19 pm REASON FOR STUDY: pain COMPARISON: None. NUMBER OF VIEWS: Three views. TECHNIQUE: Internal rotation, external rotation, and Y view images acquired of the left shoulder. LIMITATIONS: None. FINDINGS: MINERALIZATION: Normal. BONES: No acute fracture. JOINTS: No dislocation. VISUALIZED LUNGS AND RIBS: No pneumothorax or rib fracture. SOFT TISSUES: No radiopaque foreign body. OTHER: Osteoarthrosis of the acromioclavicular joint. IMPRESSION: No acute osseous abnormality of the left shoulder. TECHNICAL DOCUMENTATION: JOB ID: [id number] 2010 [employer] All Rights Reserved Reading location - IP/workstation name: [email or web address]
[2019-08-03 16:38] VITALS: BP 140/68
== END 2019-08-03 16:33 | disposition home or self-care (01) ==
LOC: ER 14:11
DX: M25.512 Pain in left shoulder (principal); R20.0 Anesthesia of skin; F17.200 Nicotine dependence, unspecified, uncomplicated; Z79.899 Other long term (current) drug therapy
CPT/HCPCS: 99283

== ENCOUNTER 2019-08-20 13:05 | Emergency (ER) | payer SELFPAY ==
--- NOTE | 2019-08-20 13:23 | ER Document Report ---
ED Medical Screen (RME) - General Chief Complaint: Arm Pain Stated Complaint: FALL/LEFT SHOULDER PAIN Time Seen by Provider: 08/20/19 13:16 Notes: HPI: 44-year-old morbidly obese female presenting for evaluation of multiple injuries from a fall that occurred 3 to 4 days ago. Patient has a history of seizures, states she had a witnessed seizure but was coming down some stairs with her dog on a leash of the dog then ran and pulled her further down the stairs. Complains of left shoulder pain left elbow pain left knee pain left ankle pain. PHYSICAL EXAMINATION: Limited exam as patient is wearing tight clothing that limit range of motion and exam. She has mild tenderness around the left shoulder girdle left trapezius region, mild tenderness around the left elbow on palpation. Mild tenderness around the left ankle and left knee on palpation I have greeted and performed a rapid initial assessment of this patient. A comprehensive ED assessment and evaluation of the patient, analysis of test results and completion of medical decision making process will be conducted by an additional ED providers. TRAVEL OUTSIDE OF THE [place] IN LAST 30 DAYS: Yes - Related Data Allergies/Adverse Reactions: iodine [Iodine] Allergy (Mild, Verified 03/28/15 19:33) amoxicillin [Amoxicillin] Allergy (Verified 03/28/15 19:33) Penicillins Allergy (Verified 03/28/15 19:33) Past Medical History - Social History Family history: Reviewed & Not Pertinent Neurological Medical History: Reports: Hx Seizures Renal/ Medical History: Denies: Hx Peritoneal Dialysis Malignancy Medical History: Reports: Hx Cervical Cancer Musculoskeltal Medical History: Reports Hx Musculoskeletal Deformity, Reports Hx Musculoskeletal Trauma Psychiatric Medical History: Reports: Hx Anxiety, Hx Depression Past Surgical History: Reports: Hx Section, Hx Dilation and Curettage, Hx Gynecologic Surgery, Hx Hysterectomy, Hx Tubal Ligation - Immunizations Immunizations up to date: Yes Hx Diphtheria, Pertussis, Tetanus Vaccination: Yes Physical Exam - Vital signs Vitals: Temp Pulse Resp BP Pulse Ox 98.6 F 83 19 119/45 L 99 08/20/19 13:14 08/20/19 13:14 08/20/19 13:14 08/20/19 13:14 08/20/19 13:14 Course - Vital Signs Vital signs: Temp Pulse Resp BP Pulse Ox 98.6 F 83 19 119/45 L 99 08/20/19 13:14 08/20/19 13:14 08/20/19 13:14 08/20/19 13:14 08/20/19 13:14
--- NOTE | 2019-08-20 14:11 | RADIOLOGY REPORT (SQ) ---
EXAM DESCRIPTION: KNEE LEFT 4 VIEW IMAGES COMPLETED DATE/TIME: 08/20/2019 2:02 pm REASON FOR STUDY: fall COMPARISON: 09/05/2014 NUMBER OF VIEWS: Four views. TECHNIQUE: AP, lateral, and both oblique radiographic images acquired of the left knee. LIMITATIONS: None. FINDINGS: MINERALIZATION: Normal. BONES: No acute fracture or dislocation. No worrisome bone lesions. Mild tricompartmental degenerat aline changes. JOINT: No effusion. SOFT TISSUES: No soft tissue swelling. No radio-opaque foreign body. OTHER: No other significant finding. IMPRESSION: No evidence of acute osseous injury. Background of mild tricompartmental degenerative c hanges. TECHNICAL DOCUMENTATION: JOB ID: [id number] 2010 [employer]- All Rights Reserved Reading location - IP/workstation name: [email or web address]
--- NOTE | 2019-08-20 14:11 | RADIOLOGY REPORT (SQ) ---
EXAM DESCRIPTION: SHOULDER LEFT 2 OR MORE VIEWS IMAGES COMPLETED DATE/TIME: 08/20/2019 2:02 pm REASON FOR STUDY: fall COMPARISON: None. NUMBER OF VIEWS: Three views. TECHNIQUE: Internal rotation, external rotation, and Y view images acquired of the left shoulder. LIMITATIONS: None. FINDINGS: MINERALIZATION: Normal. BONES: No acute fracture. No worrisome bone lesions. JOINTS: No dislocation. VISUALIZED LUNGS AND RIBS: No pneumothorax. No rib fracture. SOFT TISSUES: No radiopaque foreign body. OTHER: No other significant finding. IMPRESSION: No fracture or dislocation. TECHNICAL DOCUMENTATION: JOB ID: [id number] 2010 [employer]- All Rights Reserved Reading location - IP/workstation name: [email or web address]
--- NOTE | 2019-08-20 14:11 | RADIOLOGY REPORT (SQ) ---
EXAM DESCRIPTION: ELBOW LEFT OVER 2 VIEWS IMAGES COMPLETED DATE/TIME: 08/20/2019 2:02 pm REASON FOR STUDY: fall COMPARISON: None. NUMBER OF VIEWS: Four views. TECHNIQUE: AP, lateral, and both oblique radiographic images acquired of the left elbow. LIMITATIONS: None. FINDINGS: MINERALIZATION: Normal. BONES: No acute fracture or dislocation. No worrisome bone lesions. JOINT: No effusion. SOFT TISSUES: No soft tissue swelling. No foreign body. OTHER: No other significant finding. IMPRESSION: No fracture or dislocation. TECHNICAL DOCUMENTATION: JOB ID: [id number] 2010 [employer]- All Rights Reserved Reading location - IP/workstation name: [email or web address]
--- NOTE | 2019-08-20 14:12 | RADIOLOGY REPORT (SQ) ---
EXAM DESCRIPTION: ANKLE LEFT COMPLETE IMAGES COMPLETED DATE/TIME: 08/20/2019 2:02 pm REASON FOR STUDY: fall COMPARISON: None. NUMBER OF VIEWS: Three views. TECHNIQUE: AP, lateral, and oblique radiographic images acquired of the left ankle. LIMITATIONS: None. FINDINGS: MINERALIZATION: Normal. BONES: No acute fracture or dislocation. No worrisome bone lesions. Calcaneal enthesopathy. JOINTS: No effusions. SOFT TISSUES: No soft tissue swelling. No foreign body. OTHER: No other significant finding. IMPRESSION: No evidence of acute osseous injury. TECHNICAL DOCUMENTATION: JOB ID: [id number] 2010 [employer]- All Rights Reserved Reading location - IP/workstation name: [email or web address]
--- NOTE | 2019-08-20 14:41 | ER Document Report ---
HPI - HPI Patient complains to provider of: Fall 1 week ago Time Seen by Provider: 08/20/19 13:16 Onset: Other - This is a 44-year-old female presented to the emergency room today stating that she had fallen a week ago sustaining discomfort to her left shoulder elbow and right knee she has been ambulatory with a rhythmic and steady gait since the event. Pain Level: 2 Associated Symptoms: None Exacerbated by: Denies Relieved by: Denies - REPRODUCTIVE Reproductive: DENIES: : Past Medical History - General Information source: Patient - Social History Smoking Status: Unknown if Ever Smoked Cigarette use (# per day): No Chew tobacco use (# tins/day): No Family History: Reviewed & Not Pertinent, Hypertension Neurological Medical History: Reports: Hx Seizures Renal/ Medical History: Denies: Hx Peritoneal Dialysis Malignancy Medical History: Reports: Hx Cervical Cancer Musculoskeletal Medical History: Reports Hx Musculoskeletal Deformity, Reports Hx Musculoskeletal Trauma Psychiatric Medical History: Reports: Hx Anxiety, Hx Depression Past Surgical History: Reports: Hx Section, Hx Dilation and Curettage, Hx Gynecologic Surgery, Hx Hysterectomy, Hx Tubal Ligation - Immunizations Immunizations up to date: Yes Hx Diphtheria, Pertussis, Tetanus Vaccination: Yes Vertical Provider Document - CONSTITUTIONAL Agree With Documented VS: Yes - INFECTION CONTROL TRAVEL OUTSIDE OF THE [place] IN LAST 30 DAYS: Yes Course - Re-evaluation Re-evalutation: 08/20/19 14:39 Patient I had a long conversation about the nature of the injury and her sequela since that time. She is ambulatory with a rhythmic and steady gait good distal pulses beyond all the affected areas. - Vital Signs Vital signs: Temp Pulse Resp BP Pulse Ox 98.6 F 83 19 119/45 L 99 08/20/19 13:14 08/20/19 13:14 08/20/19 13:14 08/20/19 13:14 08/20/19 13:14 - Diagnostic Test Radiology results interpreted by me: 08/20/19 14:39 Elbow X-Ray 08/20/19 13:21 IMPRESSION: No fracture or dislocation. Shoulder X-Ray 08/20/19 13:21 IMPRESSION: No fracture or dislocation. Ankle X-Ray 08/20/19 13:22 IMPRESSION: No evidence of acute osseous injury. Knee X-Ray 08/20/19 13:22 IMPRESSION: No evidence of acute osseous injury. Background of mild tricompartmental degenerative changes. Discharge - Discharge Clinical Impression: Multiple contusions Condition: Good Disposition: HOME, SELF-CARE Additional Instructions: Contusion Your injury has resulted in a contusion -- a crushing of the deep tissues. No injury to important structures was detected during the physician's exam. Contusions vary in the amount of pain they cause, and in the length of time required for healing. Typically, the area will become bruised, and will remain painful to touch for two or three weeks. However, most patients are back to working and playing within a few days. After the initial period of rest and cold-packs, your symptoms (together with the doctor's recommendations) will determine how rapidly you can get back to full activity. Usually this means "do what feels okay, but don't do things that hurt." If re-examination was recommended, it's important to follow up as instructed. Call the doctor or return any time if pain increases, if swelling becomes severe, if you develop numbness or weakness in an injured extremity, or if any other alarming symptoms occur. Prescriptions: Cyclobenzaprine HCl [Flexeril 10 mg Tablet] 10 mg PO TIDP PRN #15 tab PRN Reason: Ibuprofen [Motrin 600 Mg Tablet] 600 mg PO TID #15 tablet Referrals: EDIS GAMBINO MD [Primary Care Provider] - Follow up as needed
[2019-08-20 14:52] VITALS: BP 121/76
== END 2019-08-20 14:56 | disposition home or self-care (01) ==
LOC: ER 13:05
DX: T14.8XXA Other injury of unspecified body region, initial encounter (principal); M25.512 Pain in left shoulder; M25.522 Pain in left elbow; M25.562 Pain in left knee; M25.572 Pain in left ankle and joints of left foot; W10.9XXA Fall (on) (from) unspecified stairs and steps, initial encounter; Y93.K1 Activity, walking an animal; I10 Essential (primary) hypertension; E66.01 Morbid (severe) obesity due to excess calories; Z88.0 Allergy status to penicillin
CPT/HCPCS: 99283